=== PATIENT | female | born 1965 | race Hispanic/Latino ===

== ENCOUNTER 2022-07-26 18:00 | Inpatient (IN) | payer BC, SELFPAY ==
[2022-07-26] VITALS (27 sets, daily range): BP systolic 101–157; BP diastolic 52–86; PULSE 86–121; RESP 16–40; TEMP 37.4–38.4; O2SAT 92–100; BMI 34.3
--- NOTE | 2022-07-26 19:09 | ED_ITS ---
HPI - Skin/Abscess/Foreign Bdy <Bryce Conway PA-C - Last Filed: 07/26/22 20:03> General Chief complaint: Skin/Abscess/Foreign Body Stated complaint: Cyst on bottom Time Seen by Provider: 07/26/22 18:40 Source: patient Mode of arrival: Ambulatory Limitations: no limitations History of Present Illness HPI narrative: This is a 57-year-old female presents to the emergency department complaining of a left-sided gluteal skin infection. She is unsure of exactly when it started but states that it began getting worse 3 days ago. She went to her primary care provider 2 days ago and was given oral Bactrim which she has been taking and states that her symptoms have not been improving. She states that she is also been having some chills as well as some nausea. Denies any vomiting. Denies any chest pain, shortness of breath, or any other concerns signs or symptoms. Denies any drainage from the skin infection. States is painful to sit on. No history of MRSA. Patient is type 1 diabetic which she states is well controlled with glipizide and metformin. Also has a history of hypertension. Related Data Allergies Allergy/AdvReac Type Severity Reaction Status Date / Time No Known Drug Allergies Allergy Verified 07/26/22 18:11 <Cata Morgan MD - Last Filed: 07/27/22 02:13> History of Present Illness HPI narrative: This is a 57-year-old female presents to the emergency department complaining of a left-sided gluteal skin infection. She is unsure of exactly when it started but states that it began getting worse 3 days ago. She went to her primary care provider 2 days ago and was given oral Bactrim which she has been taking and states that her symptoms have not been improving. She states that she is also been having some chills as well as some nausea. Denies any vomiting. Denies any chest pain, shortness of breath, or any other concerns signs or symptoms. Denies any drainage from the skin infection. States is painful to sit on. No history of MRSA. Patient is type 2 diabetic which she states is well controlled with glipizide and metformin. Also has a history of hypertension. Review of Systems <Bryce Conway PA-C - Last Filed: 07/26/22 20:03> Review of Systems Narrative: GENERAL: Reports chills,, denies fatigue, malaise, fever, sweats. HEENT: Denies sinus pain, ear pain, sore throat, difficulty swallowing, dizziness. RESPIRATORY: Denies dyspnea, cough, wheezing, hemoptysis, sputum. CARDIOVASCULAR: Denies chest pain, palpitations, orthopnea, edema, GASTROINTESTINAL: Reports nausea, denies vomiting, abdominal pain, diarrhea, constipation, melena. : Denies dysuria, frequency, incontinence, hematuria, urinary retention. MUSCULOSKELETAL: denies weakness, joint pain, or bony pain SKIN: Reports left-sided gluteal skin infection NEUROLOGIC: Denies weakness, headache, numbness, change in speech, confusion, seizures, incoordination. PSYCHIATRIC: No concerning psychosocial issues. 12 point review of systems is negative except for those stated above Patient History <Bryce Conway PA-C - Last Filed: 07/26/22 20:03> Social History Smoking Status: Former smoker Smoking Status: Former smoker alcohol intake frequency: 0-2 drinks per day Substance Use Type: does not use Exam <Bryce Conway PA-C - Last Filed: 07/26/22 20:03> Narrative Exam Narrative: GENERAL: Well-developed patient, in mild distress. HEAD: Atraumatic. Normocephalic. EYES: Pupils equal round and reactive. Extraocular motions intact. No scleral icterus. No injection or drainage. ENT: Nose without bleeding, purulent drainage. Throat without erythema, tonsillar hypertrophy or exudate. Airway patent. NECK: Trachea midline. Non tender CARDIOVASCULAR: Tachycardic with regular rhythm without murmurs, gallops, or rubs. RESPIRATORY: Clear to auscultation. Breath sounds equal bilaterally. No wheezes, rales, or rhonchi. GASTROINTESTINAL: Abdomen soft, non-tender, nondistended. EXTREMITIES: No edema or joint tenderness. BACK: Nontender without deformity or crepitance. No flank tenderness. NEURO: AOx3. SKIN: Approximately 10 cm in diameter area of erythema and induration affecting the left gluteal fold. No purulent discharge or breaks in the skin. No areas of fluctuance. Initial Vital Signs Initial Vital Signs: Vital Signs Temperature 99.3 F 07/26/22 18:05 Pulse Rate 121 H 07/26/22 18:05 Respiratory Rate 20 07/26/22 18:05 Blood Pressure 133/68 07/26/22 18:05 Pulse Oximetry 100 07/26/22 18:05 Oxygen Delivery Method Room Air 07/26/22 18:05 <Cata Morgan MD - Last Filed: 07/27/22 02:13> Initial Vital Signs Initial Vital Signs: Vital Signs Temperature 99.3 F 07/26/22 18:05 Pulse Rate 121 H 07/26/22 18:05 Respiratory Rate 20 07/26/22 18:05 Blood Pressure 133/68 07/26/22 18:05 Pulse Oximetry 100 07/26/22 18:05 Oxygen Delivery Method Room Air 07/26/22 18:05 Course <Bryce Conway PA-C - Last Filed: 07/26/22 20:03> Orders Ordered: ED Orders 07/26/22 18:30 C-Reactive Protein Quant Urgent Magnesium Urgent 07/26/22 18:50 Blood Culture Stat Complete Blood Count AUTO DIFF Stat Comprehensive Metabolic Panel Stat Lactate (Lactic Acid) Stat Procalcitonin Stat 07/26/22 19:04 Urinalysis and Microscopic Stat 07/26/22 19:18 CT pelvis w con Stat 07/26/22 20:40 COVID19 -Nasal RAPID Stat 07/26/22 21:41 Consult to General Surgery Stat 07/26/22 22:33 Consult to Dietitian, Adult Urgent 07/26/22 22:36 Education, smoking cessation ONGOING 07/26/22 22:41 Consult to Physician Routine 07/26/22 23:07 Urine Culture Stat Urine Microscopic Stat 07/27/22 05:00 Complete Blood Count AUTO DIFF DAILY Comprehensive Metabolic Panel DAILY Hemoglobin A1C% w Est Avg Glu Urgent Lactate (Lactic Acid) Routine PTT Partial Thromboplastin El Routine Procalcitonin Routine Prothrombin Time INR Routine 07/28/22 05:00 Complete Blood Count AUTO DIFF DAILY Comprehensive Metabolic Panel DAILY 07/29/22 05:00 Complete Blood Count AUTO DIFF DAILY Comprehensive Metabolic Panel DAILY Acetaminophen (Acetaminophen 325 Mg Tablet) 650 mg PO Q6H PRN PRN Reason: Fever/Mild Pain (1-3) Hydrocodone Bitart/Acetaminophen (Hydrocodone/Acet 5/325 Tablet) 2 tab PO Q4H PRN PRN Reason: Pain, Severe (7-10) Dextrose (Dextrose 50 % In Water 25 Gm/50 Ml Syringe) 25 gm IV PRN PRN PRN Reason: Hypoglycemia Hydromorphone HCl (Hydromorphone 0.5 Mg Inj) 0.5 mg IV Q15MIN PRN PRN Reason: Pain, Last Admin: 07/26/22 22:34 Dose: 0.5 mg Documented By: Admin: 07/26/22 22:06 Dose: 0.5 mg Documented By: RB Hydromorphone HCl (Hydromorphone 0.5 Mg Inj) 0.5 mg IV Q2H PRN PRN Reason: Pain, Severe (7-10) Sodium Chloride (Normal Saline 0.9%) 1,000 mls @ 100 mls/hr IV CONT TIANA Last Infusion: 07/27/22 02:01 Dose: 150 mls/hr Documented By: Admin: 07/26/22 23:00 Dose: 100 mls/hr Documented By: RB Meropenem 500 mg/ Sodium (Chloride) 100 mls @ 200 mls/hr IV Q8H TIANA Last Infusion: 07/27/22 01:30 Dose: 0 mls/hr Documented By: Admin: 07/27/22 00:38 Dose: 200 mls/hr Documented By: RB Vancomycin HCl/Dextrose (Vancomycin) 1,500 mg in 300 mls @ 200 mls/hr IV Q12H TIANA Sodium Chloride (Normal Saline 0.9%) 1,000 mls @ 150 mls/hr IV CONT TIANA Insulin Human Lispro (Insulin Lispro 100 Unit/Ml 3ml Vial) 0 unit SUBCUT ACHS TIANA; Protocol Naloxone HCl (Naloxone 0.4 Mg/Ml Vial) 0.2 mg IV Q2MIN PRN PRN Reason: Opiate Reversal Ondansetron HCl (Ondansetron 4 Mg/2 Ml Inj) 4 mg IV Q4HR PRN PRN Reason: Nausea And Vomiting Discontinued Medications Acetaminophen (Acetaminophen 325 Mg Tablet) 650 mg PO NOW ONE Stop: 07/26/22 21:01 Last Admin: 07/26/22 21:06 Dose: 650 mg Documented By: RB Sodium Chloride (Normal Saline 0.9%) 1,641 mls @ 547 mls/hr 30 ml/kg infuse over 3 hr (1641 ml) IV NOW ONE Stop: 07/26/22 22:03 Last Infusion: 07/26/22 22:35 Dose: 0 mls/hr Documented By: Admin: 07/26/22 19:16 Dose: 547 mls/hr Documented By: RB Vancomycin HCl (Vancomycin) 1,000 mg in 200 mls @ 200 mls/hr IV NOW ONE Stop: 07/26/22 20:14 Last Infusion: 07/26/22 21:31 Dose: 0 mls/hr Documented By: Admin: 07/26/22 20:12 Dose: 200 mls/hr Documented By: RB Ceftriaxone Sodium 2,000 mg/ (Sodium Chloride) 100 mls @ 200 mls/hr IV NOW ONE Stop: 07/26/22 19:16 Last Infusion: 07/26/22 20:08 Dose: 0 mls/hr Documented By: Admin: 07/26/22 19:38 Dose: 200 mls/hr Documented By: DINH Vancomycin HCl (Vancomycin) 1,000 mg in 200 mls @ 200 mls/hr IV NOW ONE Stop: 07/26/22 23:59 Last Infusion: 07/27/22 00:37 Dose: 0 mls/hr Documented By: Admin: 07/26/22 23:29 Dose: 200 mls/hr Documented By: RB Morphine Sulfate (Morphine 4 Mg/Ml Inj) 4 mg IV NOW ONE Stop: 07/26/22 20:05 Last Admin: 07/26/22 20:12 Dose: 4 mg Documented By: RB Ondansetron HCl (Ondansetron 4 Mg/2 Ml Inj) 4 mg IV NOW ONE Stop: 07/26/22 20:05 Last Admin: 07/26/22 20:12 Dose: 4 mg Documented By: ROSALEE Vancomycin HCl (Vancomycin Per Pharmacy) 1 request MISC NOW ONE Stop: 07/26/22 22:44 Last Admin: 07/26/22 23:16 Dose: Not Given Documented By: RB Vital Signs Vital signs: Vital Signs - 8 hr 07/26/22 19:03 07/26/22 19:03 07/26/22 19:15 Temperature Pulse Rate 115 H 111 H Respiratory Rate Blood Pressure 108/57 L Pulse Oximetry 99 100 07/26/22 19:51 07/26/22 19:38 07/26/22 19:45 Temperature 101.2 F H Pulse Rate 114 H 106 H Respiratory Rate 26 H 25 H Blood Pressure Pulse Oximetry 99 99 07/26/22 20:00 07/26/22 20:11 07/26/22 20:12 Temperature Pulse Rate 108 H 110 H Respiratory Rate 27 H 40 H Blood Pressure 134/68 Pulse Oximetry 98 100 07/26/22 20:12 07/26/22 20:15 07/26/22 20:18 Temperature Pulse Rate 107 H 105 H Respiratory Rate Blood Pressure 125/59 L Pulse Oximetry 100 100 07/26/22 20:18 07/26/22 20:30 07/26/22 20:30 Temperature Pulse Rate 106 H 108 H Respiratory Rate 23 29 H Blood Pressure 128/61 Pulse Oximetry 100 99 07/26/22 20:45 07/26/22 20:45 07/26/22 20:58 Temperature 100.4 F H Pulse Rate 111 H Respiratory Rate 27 H Blood Pressure 133/66 Pulse Oximetry 100 07/26/22 21:00 07/26/22 21:00 07/26/22 21:15 Temperature Pulse Rate 109 H Respiratory Rate 28 H Blood Pressure 139/75 129/63 Pulse Oximetry 99 07/26/22 21:15 07/26/22 21:30 07/26/22 21:30 Temperature Pulse Rate 112 H 108 H Respiratory Rate 29 H 21 Blood Pressure 137/77 Pulse Oximetry 99 100 07/26/22 21:45 07/26/22 21:45 07/26/22 22:00 Temperature Pulse Rate 111 H Respiratory Rate 18 Blood Pressure 157/86 H 142/83 H Pulse Oximetry 99 07/26/22 22:00 07/26/22 22:20 07/26/22 22:22 Temperature Pulse Rate 111 H 86 Respiratory Rate 26 H Blood Pressure 129/68 Pulse Oximetry 96 92 07/26/22 22:22 07/26/22 22:27 07/26/22 22:29 Temperature 99.9 F H 99.9 F H Pulse Rate 113 H Respiratory Rate 23 Blood Pressure Pulse Oximetry 95 07/26/22 22:30 07/26/22 22:30 07/26/22 22:45 Temperature Pulse Rate 110 H Respiratory Rate 16 Blood Pressure 141/67 H 101/52 L Pulse Oximetry 95 07/26/22 22:45 07/26/22 23:00 07/26/22 23:00 Temperature Pulse Rate 106 H 111 H Respiratory Rate 18 27 H Blood Pressure 105/58 L Pulse Oximetry 94 07/26/22 23:15 07/26/22 23:15 Temperature Pulse Rate 109 H Respiratory Rate 21 Blood Pressure 101/54 L Pulse Oximetry 94 <Cata Morgan MD - Last Filed: 07/27/22 02:13> Orders Ordered: ED Orders 07/26/22 18:30 C-Reactive Protein Quant Urgent Magnesium Urgent 07/26/22 18:50 Blood Culture Stat Complete Blood Count AUTO DIFF Stat Comprehensive Metabolic Panel Stat Lactate (Lactic Acid) Stat Procalcitonin Stat 07/26/22 19:04 Urinalysis and Microscopic Stat 07/26/22 19:18 CT pelvis w con Stat 07/26/22 20:40 COVID19 -Nasal RAPID Stat 07/26/22 21:41 Consult to General Surgery Stat 07/26/22 22:33 Consult to Dietitian, Adult Urgent 07/26/22 22:36 Education, smoking cessation ONGOING 07/26/22 22:41 Consult to Physician Routine 07/26/22 23:07 Urine Culture Stat Urine Microscopic Stat 07/27/22 05:00 Complete Blood Count AUTO DIFF DAILY Comprehensive Metabolic Panel DAILY Hemoglobin A1C% w Est Avg Glu Urgent Lactate (Lactic Acid) Routine PTT Partial Thromboplastin El Routine Procalcitonin Routine Prothrombin Time INR Routine 07/28/22 05:00 Complete Blood Count AUTO DIFF DAILY Comprehensive Metabolic Panel DAILY 07/29/22 05:00 Complete Blood Count AUTO DIFF DAILY Comprehensive Metabolic Panel DAILY Acetaminophen (Acetaminophen 325 Mg Tablet) 650 mg PO Q6H PRN PRN Reason: Fever/Mild Pain (1-3) Hydrocodone Bitart/Acetaminophen (Hydrocodone/Acet 5/325 Tablet) 2 tab PO Q4H PRN PRN Reason: Pain, Severe (7-10) Dextrose (Dextrose 50 % In Water 25 Gm/50 Ml Syringe) 25 gm IV PRN PRN PRN Reason: Hypoglycemia Hydromorphone HCl (Hydromorphone 0.5 Mg Inj) 0.5 mg IV Q15MIN PRN PRN Reason: Pain, Last Admin: 07/26/22 22:34 Dose: 0.5 mg Documented By: Admin: 07/26/22 22:06 Dose: 0.5 mg Documented By: RB Hydromorphone HCl (Hydromorphone 0.5 Mg Inj) 0.5 mg IV Q2H PRN PRN Reason: Pain, Severe (7-10) Sodium Chloride (Normal Saline 0.9%) 1,000 mls @ 100 mls/hr IV CONT TIANA Last Infusion: 07/27/22 02:01 Dose: 150 mls/hr Documented By: Admin: 07/26/22 23:00 Dose: 100 mls/hr Documented By: RB Meropenem 500 mg/ Sodium (Chloride) 100 mls @ 200 mls/hr IV Q8H TIANA Last Infusion: 07/27/22 01:30 Dose: 0 mls/hr Documented By: Admin: 07/27/22 00:38 Dose: 200 mls/hr Documented By: RB Vancomycin HCl/Dextrose (Vancomycin) 1,500 mg in 300 mls @ 200 mls/hr IV Q12H TIANA Sodium Chloride (Normal Saline 0.9%) 1,000 mls @ 150 mls/hr IV CONT TIANA Insulin Human Lispro (Insulin Lispro 100 Unit/Ml 3ml Vial) 0 unit SUBCUT ACHS TIANA; Protocol Naloxone HCl (Naloxone 0.4 Mg/Ml Vial) 0.2 mg IV Q2MIN PRN PRN Reason: Opiate Reversal Ondansetron HCl (Ondansetron 4 Mg/2 Ml Inj) 4 mg IV Q4HR PRN PRN Reason: Nausea And Vomiting Discontinued Medications Acetaminophen (Acetaminophen 325 Mg Tablet) 650 mg PO NOW ONE Stop: 07/26/22 21:01 Last Admin: 07/26/22 21:06 Dose: 650 mg Documented By: RB Sodium Chloride (Normal Saline 0.9%) 1,641 mls @ 547 mls/hr 30 ml/kg infuse over 3 hr (1641 ml) IV NOW ONE Stop: 07/26/22 22:03 Last Infusion: 07/26/22 22:35 Dose: 0 mls/hr Documented By: Admin: 07/26/22 19:16 Dose: 547 mls/hr Documented By: RB Vancomycin HCl (Vancomycin) 1,000 mg in 200 mls @ 200 mls/hr IV NOW ONE Stop: 07/26/22 20:14 Last Infusion: 07/26/22 21:31 Dose: 0 mls/hr Documented By: Admin: 07/26/22 20:12 Dose: 200 mls/hr Documented By: RB Ceftriaxone Sodium 2,000 mg/ (Sodium Chloride) 100 mls @ 200 mls/hr IV NOW ONE Stop: 07/26/22 19:16 Last Infusion: 07/26/22 20:08 Dose: 0 mls/hr Documented By: Admin: 07/26/22 19:38 Dose: 200 mls/hr Documented By: DINH Vancomycin HCl (Vancomycin) 1,000 mg in 200 mls @ 200 mls/hr IV NOW ONE Stop: 07/26/22 23:59 Last Infusion: 07/27/22 00:37 Dose: 0 mls/hr Documented By: Admin: 07/26/22 23:29 Dose: 200 mls/hr Documented By: ROSALEE Morphine Sulfate (Morphine 4 Mg/Ml Inj) 4 mg IV NOW ONE Stop: 07/26/22 20:05 Last Admin: 07/26/22 20:12 Dose: 4 mg Documented By: ROSALEE Ondansetron HCl (Ondansetron 4 Mg/2 Ml Inj) 4 mg IV NOW ONE Stop: 07/26/22 20:05 Last Admin: 07/26/22 20:12 Dose: 4 mg Documented By: ROSALEE Vancomycin HCl (Vancomycin Per Pharmacy) 1 request MISC NOW ONE Stop: 07/26/22 22:44 Last Admin: 07/26/22 23:16 Dose: Not Given Documented By: ROSALEE Vital Signs Vital signs: Vital Signs - 8 hr 07/26/22 19:03 07/26/22 19:03 07/26/22 19:15 Temperature Pulse Rate 115 H 111 H Respiratory Rate Blood Pressure 108/57 L Pulse Oximetry 99 100 07/26/22 19:51 07/26/22 19:38 07/26/22 19:45 Temperature 101.2 F H Pulse Rate 114 H 106 H Respiratory Rate 26 H 25 H Blood Pressure Pulse Oximetry 99 99 07/26/22 20:00 07/26/22 20:11 07/26/22 20:12 Temperature Pulse Rate 108 H 110 H Respiratory Rate 27 H 40 H Blood Pressure 134/68 Pulse Oximetry 98 100 07/26/22 20:12 07/26/22 20:15 07/26/22 20:18 Temperature Pulse Rate 107 H 105 H Respiratory Rate Blood Pressure 125/59 L Pulse Oximetry 100 100 07/26/22 20:18 07/26/22 20:30 07/26/22 20:30 Temperature Pulse Rate 106 H 108 H Respiratory Rate 23 29 H Blood Pressure 128/61 Pulse Oximetry 100 99 07/26/22 20:45 07/26/22 20:45 07/26/22 20:58 Temperature 100.4 F H Pulse Rate 111 H Respiratory Rate 27 H Blood Pressure 133/66 Pulse Oximetry 100 07/26/22 21:00 07/26/22 21:00 07/26/22 21:15 Temperature Pulse Rate 109 H Respiratory Rate 28 H Blood Pressure 139/75 129/63 Pulse Oximetry 99 07/26/22 21:15 07/26/22 21:30 07/26/22 21:30 Temperature Pulse Rate 112 H 108 H Respiratory Rate 29 H 21 Blood Pressure 137/77 Pulse Oximetry 99 100 07/26/22 21:45 07/26/22 21:45 07/26/22 22:00 Temperature Pulse Rate 111 H Respiratory Rate 18 Blood Pressure 157/86 H 142/83 H Pulse Oximetry 99 07/26/22 22:00 07/26/22 22:20 07/26/22 22:22 Temperature Pulse Rate 111 H 86 Respiratory Rate 26 H Blood Pressure 129/68 Pulse Oximetry 96 92 07/26/22 22:22 07/26/22 22:27 07/26/22 22:29 Temperature 99.9 F H 99.9 F H Pulse Rate 113 H Respiratory Rate 23 Blood Pressure Pulse Oximetry 95 07/26/22 22:30 07/26/22 22:30 07/26/22 22:45 Temperature Pulse Rate 110 H Respiratory Rate 16 Blood Pressure 141/67 H 101/52 L Pulse Oximetry 95 07/26/22 22:45 07/26/22 23:00 07/26/22 23:00 Temperature Pulse Rate 106 H 111 H Respiratory Rate 18 27 H Blood Pressure 105/58 L Pulse Oximetry 94 07/26/22 23:15 07/26/22 23:15 Temperature Pulse Rate 109 H Respiratory Rate 21 Blood Pressure 101/54 L Pulse Oximetry 94 MDM - Skin/Abscess/Foreign Bdy <Bryce Conway PA-C - Last Filed: 07/26/22 20:03> Lab Data 07/26/22 18:50 07/26/22 18:50 Labs: Lab Results 07/26/22 07/26/22 07/26/22 Range/Units 18:30 18:30 18:50 WBC 22.9 H (4.5-11.0) X10^3/uL RBC 4.14 (4.0-5.2) X10^6/uL Hgb 11.9 L (12.0-16.0) g/dL Hct 36.3 (36-46) % MCV 87.7 (80-100) fL MCH 28.7 (26-34) PG MCHC 32.8 (30-36) % RDW 14.4 (11.6-14.8) % Plt Count 376 (150-400) X10^3/uL Neut % (Auto) 87.1 H (50-75) % Lymph % (Auto) 6.8 L (25-40) % [place] % (Auto) 5.7 (3-14) % Eos % (Auto) 0.2 L (2-4) % Baso % (Auto) 0.2 (0-2) % Neut # (Auto) 65921 H (4537-4781) /uL Lymph # (Auto) 1600 (2712-2242) /uL [place] # (Auto) 1300 H (0-900) /uL Eos # (Auto) 0 (0-450) /uL Baso # (Auto) 0 (0-100) /uL Sodium (137-145) mmol/L Potassium (3.4-5.1) mmol/L Chloride (98-107) mmol/L Carbon Dioxide (22-32) mmol/L BUN (7-17) mg/dL Creatinine (0.52-1.04) mg/dL Estimated GFR (>60) mL/min BUN/Creatinine Ratio (6-22) Glucose (70-100) mg/dL Lactate (0.7-2.1) mmol/L Calcium (8.4-10.2) mg/dL Magnesium 1.7 (1.6-2.3) mg/dL Total Bilirubin (0.2-1.3) mg/dL AST (14-36) IU/L ALT (<35) IU/L Alkaline Phosphatase (38-126) U/L C-Reactive Protein 18.9 H (<1.0) mg/dL Total Protein (6.3-8.2) g/dL Albumin (3.5-5.0) g/dL Globulin (1.7-4.1) g/dL Albumin/Globulin Ratio (1.0-2.8) Procalcitonin (<0.5) ng/mL SARS-CoV-2 (PCR) (Negative) 07/26/22 07/26/22 07/26/22 Range/Units 18:50 18:50 20:40 WBC (4.5-11.0) X10^3/uL RBC (4.0-5.2) X10^6/uL Hgb (12.0-16.0) g/dL Hct (36-46) % MCV (80-100) fL MCH (26-34) PG MCHC (30-36) % RDW (11.6-14.8) % Plt Count (150-400) X10^3/uL Neut % (Auto) (50-75) % Lymph % (Auto) (25-40) % [place] % (Auto) (3-14) % Eos % (Auto) (2-4) % Baso % (Auto) (0-2) % Neut # (Auto) (6507-7338) /uL Lymph # (Auto) (6410-3240) /uL [place] # (Auto) (0-900) /uL Eos # (Auto) (0-450) /uL Baso # (Auto) (0-100) /uL Sodium 137 (137-145) mmol/L Potassium 3.9 (3.4-5.1) mmol/L Chloride 101 (98-107) mmol/L Carbon Dioxide 24 (22-32) mmol/L BUN 16 (7-17) mg/dL Creatinine 0.71 (0.52-1.04) mg/dL Estimated GFR > 60 (>60) mL/min BUN/Creatinine Ratio 22.5 H (6-22) Glucose 109 H (70-100) mg/dL Lactate 1.4 (0.7-2.1) mmol/L Calcium 9.5 (8.4-10.2) mg/dL Magnesium (1.6-2.3) mg/dL Total Bilirubin 1.2 (0.2-1.3) mg/dL AST 43 H (14-36) IU/L ALT 48 H (<35) IU/L Alkaline Phosphatase 160 H (38-126) U/L C-Reactive Protein (<1.0) mg/dL Total Protein 8.6 H (6.3-8.2) g/dL Albumin 4.1 (3.5-5.0) g/dL Globulin 4.5 H (1.7-4.1) g/dL Albumin/Globulin Ratio 0.9 L (1.0-2.8) Procalcitonin 0.12 (<0.5) ng/mL SARS-CoV-2 (PCR) Negative (Negative) Point of Care Testing Glucose POC 96 Urine Dip Bedside Urine Glucose Negative Bedside Urine Bilirubin - Negative Bedside Urine Ketone +/- 5 Urine Specific [place] 1.010 Bedside Urine Occult Blood - Negative Bedside Urine pH 6.0 Bedside Urine Protein - Negative Bedside Urine Urobilinogen 2+ 4mg Bedside Urine Nitrite - Negative Bedside Urine Leukocytes - Negative Esterase MDM Narrative Medical decision making narrative: MDM * differential diagnosis includes but not limited to cellulitis, abscess, pilonidal cyst, perirectal abscess * Prior records reviewed: Patient has not been here to this emergency department in the past. No records to review. * My lab interpretation: WBC 22.9, lactate 1.4, remaining labs pending at time of handoff. * My imaging interpretation: Imaging pending at time of handoff * Clinical Decision Rules/Scores evaluated: None * Independent discussions with: None ED Course: This is a 57-year-old female presents to the emergency department due to a worsening left-sided gluteal infection. Patient was noted to be tachycardic with the associated infection. Initial temperature was 99.3?. Sepsis orders initiated. Fluids started as well as patient given IV vancomycin and Rocephin for antibiotic coverage. CT pelvis with contrast was ordered for further examination of the soft tissue infection. Care was handed off to my attending physician, Dr. Morgan at end of shift. 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 she is unsure if it is actually a cancer, hypertension, hyperlipidemia Data collected from: patient, Social determinants of health that may influence the patients condition: her son is currently deployed and he helps with additional medical care and transportation Medical records reviewed: no medical records are available Differential considered: abscess, cellulitis, perirectal abscess, pilonidal cyst Exam documented above, pertinent findings include: significant induration and tenderness in the right buttock without obvious drainage, palpable fluctuance or erythema Lab Test results independently reviewed as above. Pertinent findings: CBC shows significant leukocytosis at 22.9 with significant left shift. No anemia chemistries show no acute renal abnormalities with creatinine 0.7. Slightly elevated AST ALT alk-phos with no prior labs for comparison Imaging studies independently reviewed: CT scan of the pelvis with contrast shows moderate underlying subcutaneous soft tissue inflammation and moderate-sized focus of soft tissue gas along the medial buttock/glutealcleft measuring 5.2 x 5.7 x 5.5 cm.? Extension of soft tissue gas across the midline on the right side, adjacent to the anus.? No organized fluid collection seen. Consultations:930pm Dr. Zapata, general surgery. She will consult evaluate the patient in the morning anticipate surgical I&D tomorrow. 10pm Discussion with hospitalist BELT POLISHERSanna Posada, will be primary admitting service for help with diabetes hypertension hyperlipidemia management Treatments: with suspected infection and tachycardia issues is meeting SIRS criteria. Thirty per kilos fluid bolus was initiated after blood cultures obtained. She was started on ceftriaxone with vancomycin. Parenteral narcotics for use for pain control. She is doing a bit better at this point Discussion: [id number] 2 diabetic with possible pancreatic cancer currently being very conservatively manage with left deep buttock abscess without drainage. She is responding nicely to fluids and parenteral antibiotics. Will be admitted to the medicine service. Surgery is consulted. Patient is aware of all of this was anticipation of surgical intervention for her abscess tomorrow. Questions are answered Lab Data Labs: Lab Results 07/26/22 07/26/22 07/26/22 Range/Units 18:30 18:30 18:50 WBC 22.9 H (4.5-11.0) X10^3/uL RBC 4.14 (4.0-5.2) X10^6/uL Hgb 11.9 L (12.0-16.0) g/dL Hct 36.3 (36-46) % MCV 87.7 (80-100) fL MCH 28.7 (26-34) PG MCHC 32.8 (30-36) % RDW 14.4 (11.6-14.8) % Plt Count 376 (150-400) X10^3/uL Neut % (Auto) 87.1 H (50-75) % Lymph % (Auto) 6.8 L (25-40) % [place] % (Auto) 5.7 (3-14) % Eos % (Auto) 0.2 L (2-4) % Baso % (Auto) 0.2 (0-2) % Neut # (Auto) 65772 H (7953-8268) /uL Lymph # (Auto) 1600 (2768-9796) /uL [place] # (Auto) 1300 H (0-900) /uL Eos # (Auto) 0 (0-450) /uL Baso # (Auto) 0 (0-100) /uL Sodium (137-145) mmol/L Potassium (3.4-5.1) mmol/L Chloride (98-107) mmol/L Carbon Dioxide (22-32) mmol/L BUN (7-17) mg/dL Creatinine (0.52-1.04) mg/dL Estimated GFR (>60) mL/min BUN/Creatinine Ratio (6-22) Glucose (70-100) mg/dL Lactate (0.7-2.1) mmol/L Calcium (8.4-10.2) mg/dL Magnesium 1.7 (1.6-2.3) mg/dL Total Bilirubin (0.2-1.3) mg/dL AST (14-36) IU/L ALT (<35) IU/L Alkaline Phosphatase (38-126) U/L C-Reactive Protein 18.9 H (<1.0) mg/dL Total Protein (6.3-8.2) g/dL Albumin (3.5-5.0) g/dL Globulin (1.7-4.1) g/dL Albumin/Globulin Ratio (1.0-2.8) Procalcitonin (<0.5) ng/mL SARS-CoV-2 (PCR) (Negative) 07/26/22 07/26/22 07/26/22 Range/Units 18:50 18:50 20:40 WBC (4.5-11.0) X10^3/uL RBC (4.0-5.2) X10^6/uL Hgb (12.0-16.0) g/dL Hct (36-46) % MCV (80-100) fL MCH (26-34) PG MCHC (30-36) % RDW (11.6-14.8) % Plt Count (150-400) X10^3/uL Neut % (Auto) (50-75) % Lymph % (Auto) (25-40) % [place] % (Auto) (3-14) % Eos % (Auto) (2-4) % Baso % (Auto) (0-2) % Neut # (Auto) (3439-1784) /uL Lymph # (Auto) (7162-1240) /uL [place] # (Auto) (0-900) /uL Eos # (Auto) (0-450) /uL Baso # (Auto) (0-100) /uL Sodium 137 (137-145) mmol/L Potassium 3.9 (3.4-5.1) mmol/L Chloride 101 (98-107) mmol/L Carbon Dioxide 24 (22-32) mmol/L BUN 16 (7-17) mg/dL Creatinine 0.71 (0.52-1.04) mg/dL Estimated GFR > 60 (>60) mL/min BUN/Creatinine Ratio 22.5 H (6-22) Glucose 109 H (70-100) mg/dL Lactate 1.4 (0.7-2.1) mmol/L Calcium 9.5 (8.4-10.2) mg/dL Magnesium (1.6-2.3) mg/dL Total Bilirubin 1.2 (0.2-1.3) mg/dL AST 43 H (14-36) IU/L ALT 48 H (<35) IU/L Alkaline Phosphatase 160 H (38-126) U/L C-Reactive Protein (<1.0) mg/dL Total Protein 8.6 H (6.3-8.2) g/dL Albumin 4.1 (3.5-5.0) g/dL Globulin 4.5 H (1.7-4.1) g/dL Albumin/Globulin Ratio 0.9 L (1.0-2.8) Procalcitonin 0.12 (<0.5) ng/mL SARS-CoV-2 (PCR) Negative (Negative) Point of Care Testing Glucose POC 96 Urine Dip Bedside Urine Glucose Negative Bedside Urine Bilirubin - Negative Bedside Urine Ketone +/- 5 Urine Specific [place] 1.010 Bedside Urine Occult Blood - Negative Bedside Urine pH 6.0 Bedside Urine Protein - Negative Bedside Urine Urobilinogen 2+ 4mg Bedside Urine Nitrite - Negative Bedside Urine Leukocytes - Negative Esterase MDM Narrative Medical decision making narrative: Severe Sepsis Criteria [ x] bacterial source of infection suspected and documented [ ] 2 SIRS Criteria met [ x ] HR >90 [x ] RR >20 [ ] fever or hypothermia [x ] leukocytosis/leukopenia/bandemia [ ] Evidence of at least 1 organ system dysfunction [ ] Lactate > 2 [ ] BP < 90 or MAP <65, >40mm decrease from normal baseline [ ] Creat > 2.0 [ ] T. Bili > 2.0 [ ] platelet count < 100k [ ] altered mental status [ ] mechanical ventilation [ ] provider documentation of severe sepsis Severe Sepsis Determination. the patient has been screened and [ ] DOES meet criteria for severe sepsis [ x ] DOES NOT meet criteria for severe sepsis Goal directed treatment Within 3 hours [ x] blood cx drawn prior to abx [ x ] broad spectrum abx started [ x ] lactic acid level checked [ ] lactic redrawn within 6 hours if >2.0 Septic Shock Criteria [ ] lactic > 4 at any time [ ] SBP ,90 or MAP , 65 [ ] documentation of septic shock Time Septic Shock diagnosed: [ ] Septic Shock Determination. the patient has been screened and [ ] DOES meet criteria for septic shock [ x] DOES NOT meet criteria for septic shock Discharge Plan Departure Patient Disposition: Admitted As Inpatient Clinical Impression: Abscess, gluteal, left, SIRS (systemic inflammatory response syndrome) Diabetes Qualifiers: Diabetes mellitus type: type 2 Diabetes mellitus long term care pharmacist insulin use: without long term care pharmacist use Admit Date/Time: 07/26/22 23:46 Admit Provider: Faby Posada
[2022-07-26] MEDS: SODIUM CHLORIDE 0.9% 1,641 ML 547 ML IV (19:16)
--- NOTE | 2022-07-26 19:18 | DI.CT.S_ITS ---
PROCEDURE: CT PELVIS W CON INDICATIONS: Evaluate L gluteal soft tissue infection TECHNIQUE: After the administration of intravenous contrast, 5 mm thick sections acquired from the iliac crests to the symphysis. 5 mm coronal and sagittal reformats were acquired. For radiation dose reduction, the following was used: automated exposure control, adjustment of mA and/or kV according to patient size. COMPARISON: None. FINDINGS: Image quality: Excellent. Peritoneum and bowel: Bowel loops demonstrate normal wall thickness and caliber. No free fluid or air. Genitourinary: Bladder wall thickness is normal. Nodes and vessels: No iliac, pelvic, or inguinal adenopathy by size criteria. Iliac vessels demonstrate normal size and enhancement. Bones: No suspicious bony lesions. Miscellaneous: There is moderate skin thickening overlying the left buttocks with significant subcutaneous soft tissue inflammatory changes. Additionally, moderate-size focus of subcutaneous gas measuring approximately 5.2 x 5.7 cm in axial cross-sectional dimension noted medially near the gluteal cleft. This measures approximately 5.5 cm in craniocaudal dimension. Soft tissue gas appears to extend into the medial right buttocks adjacent to the anus. No evidence for organized fluid collection seen. No extension of gas into the peritoneal cavity. IMPRESSION: Skin thickening of the left buttocks with moderate underlying subcutaneous soft tissue inflammation and moderate-sized focus of soft tissue gas along the medial buttock/gluteal cleft measuring 5.2 x 5.7 x 5.5 cm. Extension of soft tissue gas across the midline on the right side, adjacent to the anus. No organized fluid collection seen. Recommend correlation for recent instrumentation/incision and drainage. Otherwise, findings are suspicious for infection with a gas-forming organism and surgical consultation is recommended. No extension of soft tissue gas into the peritoneal cavity. Findings were discussed with Dr. Morgan at 2022 hrs. Dictated by: Ángel Adams M.D. on 07/26/2022 at 20:10 Approved by: Ángel Adams M.D. on 07/26/2022 at 20:25
[2022-07-26 19:38] LABS: Add Manual Diff / Slide Review NO; Basophils Absolute Auto 0 /uL (0-100); Basophils Percent Auto 0.2 % (0-2); Eosinophils Absolute Auto 0 /uL (0-450); Eosinophils Percent Auto 0.2 % (2-4); Hematocrit 36.3 % (36-46); Hemoglobin 11.9 g/dL (12.0-16.0); Lymphocytes Absolute Auto 1600 /uL (1100-4500); Lymphocytes Percent Auto 6.8 % (25-40); Mean Corpuscular HGB Conc 32.8 % (30-36); Mean Corpuscular Hemoglobin 28.7 PG (26-34); Mean Corpuscular Volume 87.7 fL (80-100); Monocytes Absolute Auto 1300 /uL (0-900); Monocytes Percent Auto 5.7 % (3-14); Neutrophils Absolute Auto 20000 /uL (1500-7000); Neutrophils Percent Auto 87.1 % (50-75); Platelet Count 376 X10^3/uL (150-400); Red Blood Cell Count 4.14 X10^6/uL (4.0-5.2); Red Cell Distribution Width 14.4 % (11.6-14.8); White Blood Cell Count 22.9 X10^3/uL (4.5-11.0)
[2022-07-26] MEDS: cefTRIAXone 2,000 MG in SODIUM CHLORIDE 0.9% 100 ML 200 MG IV (19:38)
[2022-07-26 19:45] LABS: Alanine Aminotransferase 48 IU/L (<35); Albumin 4.1 g/dL (3.5-5.0); Albumin Globulin Ratio 0.9 (1.0-2.8); Alkaline Phosphatase 160 U/L (38-126); Aspartate Aminotransferase 43 IU/L (14-36); BUN Creatinine Ratio 22.5 (6-22); Bilirubin Total 1.2 mg/dL (0.2-1.3); Blood Urea Nitrogen 16 mg/dL (7-17); Calcium 9.5 mg/dL (8.4-10.2); Carbon Dioxide 24 mmol/L (22-32); Chloride 101 mmol/L (98-107); Estimated Glomerular Filt Rate > 60 mL/min (>60); Globulin 4.5 g/dL (1.7-4.1); Glucose 109 mg/dL (70-100); HEMOLYSIS < 15 (0-50); Potassium 3.9 mmol/L (3.4-5.1); Sodium 137 mmol/L (137-145); Total Protein 8.6 g/dL (6.3-8.2)
[2022-07-26 19:46] LABS: Lactate (Lactic Acid) 1.4 mmol/L (0.7-2.1)
[2022-07-26 20:02] LABS: Procalcitonin 0.12 ng/mL (<0.5)
[2022-07-26] MEDS: ONDANSETRON 4 MG/2 ML INJ IV (20:12)
[2022-07-26] MEDS: MORPHINE 4 MG/ML INJ IV (20:12)
[2022-07-26] MEDS: VANCOMYCIN 1,000 MG/200 ML PIGGYBACK 200 MG IV ×2 (20:12→23:29)
[2022-07-26 21:01] LABS: COVID19 -Nasal RAPID Negative (Negative)
[2022-07-26] MEDS: ACETAMINOPHEN 325 MG TABLET 650 MG PO (21:06)
[2022-07-26] MEDS: HYDROMORPHONE 0.5 MG INJ IV ×2 (22:06→22:34)
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
[2022-07-26 22:55] LABS: Magnesium 1.7 mg/dL (1.6-2.3)
[2022-07-26] MEDS: SODIUM CHLORIDE 0.9% 1,000 ML 100 ML IV (23:00)
[2022-07-26 23:15] LABS: C-Reactive Protein Quant 18.9 mg/dL (<1.0)
[2022-07-27] VITALS (71 sets, daily range): BP systolic 89–153; BP diastolic 38–106; PULSE 78–114; RESP 12–43; TEMP 36.3–38.1; O2SAT 92–100; BMI 34.3; BMI 34.2
[2022-07-27] MEDS: MEROPENEM 500 MG in SODIUM CHLORIDE 0.9% 100 ML 200 MG IV ×3 (00:38→22:16)
[2022-07-27 01:24] LABS: Bacteria Urine Few (2-10); RBC Urine 1-5/HPF (0-5/HPF); Squamous Epithelial Cell Urine 1-5 /HPF (0-5/HPF); WBC Urine None Seen (0-5/HPF)
[2022-07-27 01:59] LABS: MRSA (Nasal) PCR Not Detected (Not Detect)
--- NOTE | 2022-07-27 02:02 | PC.NURSE ---
Increased patient to 150mls an hour for normal saline per hospitilist verbal order. Placed current bag at 1540ml/hr to complete current bag and placed in verbal order for the next bag at 150ml/hr .
[2022-07-27] MEDS: SODIUM CHLORIDE 0.9% 1,000 ML 150 ML IV ×2 (02:16→09:13)
[2022-07-27] MEDS: HYDROMORPHONE 0.5 MG INJ IV ×3 (02:17→11:27)
[2022-07-27 04:04] LABS: Add Manual Diff / Slide Review NO; Basophils Absolute Auto 100 /uL (0-100); Basophils Percent Auto 0.4 % (0-2); Eosinophils Absolute Auto 0 /uL (0-450); Eosinophils Percent Auto 0.1 % (2-4); Hemoglobin 10.5 g/dL (12.0-16.0); Lymphocytes Absolute Auto 1800 /uL (1100-4500); Mean Corpuscular HGB Conc 32.9 % (30-36); Mean Corpuscular Hemoglobin 28.7 PG (26-34); Mean Corpuscular Volume 87.2 fL (80-100); Monocytes Absolute Auto 1500 /uL (0-900); Monocytes Percent Auto 6.7 % (3-14); Neutrophils Absolute Auto 18600 /uL (1500-7000); Neutrophils Percent Auto 84.8 % (50-75); Platelet Count 346 X10^3/uL (150-400); Red Blood Cell Count 3.67 X10^6/uL (4.0-5.2); Red Cell Distribution Width 14.4 % (11.6-14.8)
[2022-07-27 04:10] LABS: Lactate (Lactic Acid) 0.7 mmol/L (0.7-2.1)
[2022-07-27 04:13] LABS: Alanine Aminotransferase 37 IU/L (<35); Albumin 3.4 g/dL (3.5-5.0); Albumin Globulin Ratio 0.9 (1.0-2.8); Alkaline Phosphatase 124 U/L (38-126); Aspartate Aminotransferase 30 IU/L (14-36); BUN Creatinine Ratio 20.7 (6-22); Bilirubin Total 0.8 mg/dL (0.2-1.3); Blood Urea Nitrogen 12 mg/dL (7-17); Calcium 8.4 mg/dL (8.4-10.2); Carbon Dioxide 19 mmol/L (22-32); Chloride 107 mmol/L (98-107); Estimated Glomerular Filt Rate > 60 mL/min (>60); Globulin 3.6 g/dL (1.7-4.1); Glucose 116 mg/dL (70-100); HEMOLYSIS < 15 (0-50); Sodium 137 mmol/L (137-145)
[2022-07-27 04:28] LABS: Procalcitonin 0.19 ng/mL (<0.5)
[2022-07-27 05:32] LABS: Erythrocyte Sedimentation Rate 79 MM/HR (0-20)
[2022-07-27 06:49] LABS: INR 1.3 (0.9-1.3); Prothrombin Time 15.2 SECONDS (10.1-12.7)
[2022-07-27 06:52] LABS: PTT Partial Thromboplastin Tim 30 SECONDS (26-36)
--- NOTE | 2022-07-27 07:50 | P.CONS_ITS ---
History of Present Illness Consult details Date Patient Seen: 07/27/22 Time Patient Seen: 07:50 Chief complaint: Cyst on bottom Reason for consult: Butt abscess Requesting provider: Cata Morgan Narrative: Right buttock pain and swelling. Hyperglycemia. Pain is sharp and 10/10. +fever, no diarrhea, no cough Meds Home Medications and Allergies Allergies Allergy/AdvReac Type Severity Reaction Status Date / Time No Known Drug Allergies Allergy Verified 07/26/22 18:11 Exam Vital Signs (past 8 hours): - 07/27/22 00:16 07/27/22 01:01 07/27/22 03:36 Temperature 98.1 F Pulse Rate 105 H 97 H 81 Respiratory Rate 22 18 Blood Pressure 105/56 L Blood Pressure [Right Wrist] 119/56 L 98/53 L Pulse Oximetry 96 94 99 Oxygen Delivery Method Room Air Room Air Room Air 07/27/22 00:30 07/27/22 00:45 07/27/22 00:46 Temperature Pulse Rate 106 H 114 H 111 H Respiratory Rate 26 H 25 H 24 Blood Pressure Blood Pressure [Right Wrist] Pulse Oximetry 96 96 93 Oxygen Delivery Method 07/27/22 00:46 07/27/22 00:56 07/27/22 00:56 Temperature Pulse Rate 99 H Respiratory Rate 24 Blood Pressure 148/106 H 106/54 L Blood Pressure [Right Wrist] Pulse Oximetry 92 Oxygen Delivery Method 07/27/22 01:00 07/27/22 01:00 07/27/22 01:15 Temperature Pulse Rate 100 H Respiratory Rate 25 H Blood Pressure 105/56 L 98/55 L Blood Pressure [Right Wrist] Pulse Oximetry 95 Oxygen Delivery Method 07/27/22 01:15 07/27/22 01:30 07/27/22 01:30 Temperature Pulse Rate 94 H 91 H Respiratory Rate 15 17 Blood Pressure 98/54 L Blood Pressure [Right Wrist] Pulse Oximetry 95 95 Oxygen Delivery Method 07/27/22 01:45 07/27/22 01:45 07/27/22 02:00 Temperature Pulse Rate 91 H Respiratory Rate 16 Blood Pressure 102/52 L 99/53 L Blood Pressure [Right Wrist] Pulse Oximetry 95 Oxygen Delivery Method 07/27/22 02:00 07/27/22 02:15 07/27/22 02:15 Temperature Pulse Rate 92 H 90 Respiratory Rate 20 19 Blood Pressure 97/52 L Blood Pressure [Right Wrist] Pulse Oximetry 94 95 Oxygen Delivery Method 07/27/22 02:30 07/27/22 02:30 07/27/22 02:45 Temperature Pulse Rate 82 Respiratory Rate 17 Blood Pressure 99/55 L 94/52 L Blood Pressure [Right Wrist] Pulse Oximetry 94 Oxygen Delivery Method 07/27/22 02:45 07/27/22 03:00 07/27/22 03:00 Temperature Pulse Rate 84 83 Respiratory Rate 19 19 Blood Pressure 96/54 L Blood Pressure [Right Wrist] Pulse Oximetry 94 95 Oxygen Delivery Method 07/27/22 03:15 07/27/22 03:15 07/27/22 03:30 Temperature Pulse Rate 83 Respiratory Rate 19 Blood Pressure 99/50 L 98/53 L Blood Pressure [Right Wrist] Pulse Oximetry 95 Oxygen Delivery Method 07/27/22 03:30 07/27/22 03:45 07/27/22 03:45 Temperature Pulse Rate 83 91 H Respiratory Rate 18 33 H Blood Pressure 102/62 Blood Pressure [Right Wrist] Pulse Oximetry 95 97 Oxygen Delivery Method 07/27/22 04:00 07/27/22 04:00 07/27/22 04:15 Temperature Pulse Rate 89 Respiratory Rate 25 H Blood Pressure 97/55 L 102/59 L Blood Pressure [Right Wrist] Pulse Oximetry 96 Oxygen Delivery Method 07/27/22 04:15 07/27/22 04:30 07/27/22 04:30 Temperature Pulse Rate 91 H 90 Respiratory Rate 24 21 Blood Pressure 109/61 Blood Pressure [Right Wrist] Pulse Oximetry 96 95 Oxygen Delivery Method 07/27/22 04:45 07/27/22 04:45 07/27/22 05:00 Temperature Pulse Rate 91 H Respiratory Rate 26 H Blood Pressure 104/59 L 97/53 L Blood Pressure [Right Wrist] Pulse Oximetry 95 Oxygen Delivery Method 07/27/22 05:00 07/27/22 05:15 07/27/22 05:15 Temperature Pulse Rate 84 82 Respiratory Rate 18 19 Blood Pressure 96/53 L Blood Pressure [Right Wrist] Pulse Oximetry 94 95 Oxygen Delivery Method 07/27/22 05:30 07/27/22 05:30 07/27/22 05:45 Temperature Pulse Rate 91 H Respiratory Rate 27 H Blood Pressure 103/59 L 104/55 L Blood Pressure [Right Wrist] Pulse Oximetry 96 Oxygen Delivery Method 07/27/22 05:45 07/27/22 06:00 07/27/22 06:00 Temperature Pulse Rate 84 96 H Respiratory Rate 18 20 Blood Pressure 119/56 L Blood Pressure [Right Wrist] Pulse Oximetry 96 97 Oxygen Delivery Method 07/27/22 06:15 07/27/22 06:15 Temperature Pulse Rate 88 Respiratory Rate 29 H Blood Pressure 100/55 L Blood Pressure [Right Wrist] Pulse Oximetry 95 Oxygen Delivery Method Oxygen Delivery Method Room Air Const General: cooperative Nutritional Appearance: obese HENMT Ears: hearing grossly normal bilaterally Face and sinus: normal facial exam Eyes Sclera: sclerae normal Neck Neck: trachea midline Resp Effort & Inspection: normal respiratory effort and able to speak in complete sentences Cardio Rate: tachycardic Rhythm: regular rhythm GI Palpation: soft Back/Spine/Pelvis Other: swollen right buttocks no significant skin changes Skin General: turgor normal Neuro General: patient alert, patient awake and patient oriented x3 Psych Mental Status: mental status grossly normal Judgment: judgment good Objective Labs 07/27/22 03:45 07/27/22 03:45 Labs: Laboratory Results - last 24 hr 07/26/22 07/26/22 07/26/22 18:30 18:30 18:50 WBC 22.9 H RBC 4.14 Hgb 11.9 L Hct 36.3 MCV 87.7 MCH 28.7 MCHC 32.8 RDW 14.4 Plt Count 376 Neut % (Auto) 87.1 H Lymph % (Auto) 6.8 L [place] % (Auto) 5.7 Eos % (Auto) 0.2 L Baso % (Auto) 0.2 Neut # (Auto) 11366 H Lymph # (Auto) 1600 [place] # (Auto) 1300 H Eos # (Auto) 0 Baso # (Auto) 0 ESR PT INR APTT Sodium Potassium Chloride Carbon Dioxide BUN Creatinine Estimated GFR BUN/Creatinine Ratio Glucose Hemoglobin A1c Lactate Calcium Magnesium 1.7 Total Bilirubin AST ALT Alkaline Phosphatase C-Reactive Protein 18.9 H Total Protein Albumin Globulin Albumin/Globulin Ratio Procalcitonin Urine RBC Urine WBC Ur Squamous Epith Cells Urine Bacteria Micro UA Comment Nasal Screen MRSA (PCR) SARS-CoV-2 (PCR) 07/26/22 07/26/22 07/26/22 18:50 18:50 20:40 WBC RBC Hgb Hct MCV MCH MCHC RDW Plt Count Neut % (Auto) Lymph % (Auto) [place] % (Auto) Eos % (Auto) Baso % (Auto) Neut # (Auto) Lymph # (Auto) [place] # (Auto) Eos # (Auto) Baso # (Auto) ESR PT INR APTT Sodium 137 Potassium 3.9 Chloride 101 Carbon Dioxide 24 BUN 16 Creatinine 0.71 Estimated GFR > 60 BUN/Creatinine Ratio 22.5 H Glucose 109 H Hemoglobin A1c Lactate 1.4 Calcium 9.5 Magnesium Total Bilirubin 1.2 AST 43 H ALT 48 H Alkaline Phosphatase 160 H C-Reactive Protein Total Protein 8.6 H Albumin 4.1 Globulin 4.5 H Albumin/Globulin Ratio 0.9 L Procalcitonin 0.12 Urine RBC Urine WBC Ur Squamous Epith Cells Urine Bacteria Micro UA Comment Nasal Screen MRSA (PCR) SARS-CoV-2 (PCR) Negative 07/27/22 07/27/22 07/27/22 00:20 00:47 03:45 WBC 22.0 H RBC 3.67 L Hgb 10.5 L Hct 32.0 L MCV 87.2 MCH 28.7 MCHC 32.9 RDW 14.4 Plt Count 346 Neut % (Auto) 84.8 H Lymph % (Auto) 8.0 L [place] % (Auto) 6.7 Eos % (Auto) 0.1 L Baso % (Auto) 0.4 Neut # (Auto) 65101 H Lymph # (Auto) 1800 [place] # (Auto) 1500 H Eos # (Auto) 0 Baso # (Auto) 100 ESR PT INR APTT Sodium Potassium Chloride Carbon Dioxide BUN Creatinine Estimated GFR BUN/Creatinine Ratio Glucose Hemoglobin A1c Lactate Calcium Magnesium Total Bilirubin AST ALT Alkaline Phosphatase C-Reactive Protein Total Protein Albumin Globulin Albumin/Globulin Ratio Procalcitonin Urine RBC 1-5/hpf Urine WBC None seen Ur Squamous Epith Cells 1-5 /hpf Urine Bacteria Few (2-10) H Micro UA Comment * Nasal Screen MRSA (PCR) Not detected SARS-CoV-2 (PCR) 07/27/22 07/27/22 07/27/22 03:45 03:45 03:45 WBC RBC Hgb Hct MCV MCH MCHC RDW Plt Count Neut % (Auto) Lymph % (Auto) [place] % (Auto) Eos % (Auto) Baso % (Auto) Neut # (Auto) Lymph # (Auto) [place] # (Auto) Eos # (Auto) Baso # (Auto) ESR PT 15.2 H INR 1.3 APTT 30 Sodium 137 Potassium 4.0 Chloride 107 Carbon Dioxide 19 L BUN 12 Creatinine 0.58 Estimated GFR > 60 BUN/Creatinine Ratio 20.7 Glucose 116 H Hemoglobin A1c Lactate 0.7 Calcium 8.4 Magnesium Total Bilirubin 0.8 AST 30 ALT 37 H Alkaline Phosphatase 124 C-Reactive Protein Total Protein 7.0 Albumin 3.4 L Globulin 3.6 Albumin/Globulin Ratio 0.9 L Procalcitonin 0.19 Urine RBC Urine WBC Ur Squamous Epith Cells Urine Bacteria Micro UA Comment Nasal Screen MRSA (PCR) SARS-CoV-2 (PCR) 07/27/22 07/27/22 03:45 03:45 WBC RBC Hgb Hct MCV MCH MCHC RDW Plt Count Neut % (Auto) Lymph % (Auto) [place] % (Auto) Eos % (Auto) Baso % (Auto) Neut # (Auto) Lymph # (Auto) [place] # (Auto) Eos # (Auto) Baso # (Auto) ESR 79 H PT INR APTT Sodium Potassium Chloride Carbon Dioxide BUN Creatinine Estimated GFR BUN/Creatinine Ratio Glucose Hemoglobin A1c Cancelled Lactate Calcium Magnesium Total Bilirubin AST ALT Alkaline Phosphatase C-Reactive Protein Total Protein Albumin Globulin Albumin/Globulin Ratio Procalcitonin Urine RBC Urine WBC Ur Squamous Epith Cells Urine Bacteria Micro UA Comment Nasal Screen MRSA (PCR) SARS-CoV-2 (PCR) [facility] Medical History (Updated 07/27/22 @ 05:11 by LYNDSAY Cui) Essential hypertension Hyperlipidemia associated with type 2 diabetes mellitus Surgical History (Updated 07/27/22 @ 05:11 by LYNDSAY Cui) History of appendectomy History of cholecystectomy History of colon resection History of hysterectomy Family History Father Hypertension Diabetes mellitus Mother Hypertension Tobacco & Substance Use Smoking Status: Former smoker Assessment & Plan Assessment & Plan narrative: Right buttock abscess obesity, BMI 34 diabetic COVID-19 COVID-19 status: Negative Time Spent With Patient Time with patient: 30 to 49 minutes with 50% spent counseling/coordinating care
--- NOTE | 2022-07-27 08:15 | PC.NURSE ---
This RNs first interaction with pt. VSS, pressure 106/59. AOx4. Pt is NPO. States surgeon advised her this am that surgery would be between 12-3pm. Pain 7/10 for L-buttock cellulites.
--- NOTE | 2022-07-27 08:24 | PC.NURSE ---
Spoke to pharmacy and lab, Vanc trough 1 not due until tomorrow.
[2022-07-27] MEDS: VANCOMYCIN 1,250 MG/250 ML PIGGYBACK 250 MG IV ×2 (08:30→16:58)
[2022-07-27] MEDS: lisinopriL 10 MG TABLET PO (08:48)
[2022-07-27 12:16] LABS: PTT Partial Thromboplastin Tim 31 SECONDS (26-36)
--- NOTE | 2022-07-27 13:58 | PC.NURSE ---
Report given to Hugo JONES OR
--- NOTE | 2022-07-27 14:06 | CM.IDA ---
Initial DCP Assessment Patient is 57 y/o female who presents to due to concern for skin infection on left buttock. Patient is on there way to surgery with Dr. Zapata now to treat abscess. Patient has hx of Hyperlipidemia, Type 2 diabetes, Hypertension and Pancreatic Mass Patient's PCP is Dorota Oleary PA-C, patient has out of state [employer] insurance. Patient also sees [facility]. CENTRAL OFFICE EQUIPMENT INSTALLER enters room to meet with patient. Present with patient is patient's friend, patient endorses that she lives with son and son's girlfriend in [place]. Patient presents that son is on deployment and returning home tomorrow. Patient presents as A/Ox4, patient endorses she works at [employer], drives and is independent with ADLs. Patient endorses it has been difficult to walk with this abscess but states she believe it will be much better after surgery. Patient denies need for DME or use of DME at home at this time. Patient denies DCP needs. Patient endorses that she has good supports from family and friends. Patient's friend states she will care for patient as long as needed. Patient endorses her son's girlfriend is studying to be a nurse. Plan: Patient to be admitted after surgery, patient may need wound after surgery. Patient denies DCP needs upon d/c at this time, patient has good family and friend supports. DCP to f/u with POC. Patient likely to d/c to home with family upon medical stability. RAMOS Hastings Discharge Planning/Care Management CM Discharge Assessment Start: 07/27/22 14:00 Freq: Status: Active Protocol: Document 07/27/22 14:01 ROSE MARIE (Rec: 07/27/22 14:06 LN [id number]) Discharge Planning Assessment Assigned Business Development Sales Executive RAMOS Yoon DPOA/Assigned Designee Name Son: Sunil Avila Contact Information [phone] Advance Directives? No History Provided By Patient,Friend Has Patient been admitted in last 30 No days? Prior Living Arrangements Apartment/Condo Household Members family,children Type of transporation used prior to Drives own vehicle admit Independent with ADL's Yes Is patient alert and oriented? Yes Please Provide Date Initial DC 07/27/22 Assessment Was Performed
--- NOTE | 2022-07-27 14:35 | SUR.OPER ---
Lateral on a licea bag, head on pillow, gel axillary roll in place, bottom leg bent with gel pad under knee to foot, upper leg straight and supported with pillows. Upper arm supported by pillows and secured over bottom arm to padded arm board. Safety belt at hip, tape over blanket lower legs.
--- NOTE | 2022-07-27 15:01 | PM.OP.1 ---
Operative Date/Time/Diagnoses Date of procedure: 07/27/22 Time of procedure: 15:02 Pre-op diagnosis: Left buttock abscess Post-op diagnosis: same Procedure & Clinicians Procedure: Incision and drainage of left buttock abscess Same procedure as scheduled: Yes Indications: Left buttock abscess Surgeon: Alisha Zapata Click Yes if Unassisted: Yes Anesthesia Type: General Operative Notes Findings: Left buttock abscess with gas producing organism. Abscess cavity proximally the size of a orange. Closure Type: not applicable Specimen(s): other (Left buttock abscess culture) Applied: drain(s) (A 10. Danny drain) Estimated Blood Loss (mL): 5 Blood products transfused: none Procedure in detail: Preop diagnosis: Left buttock abscess Postop diagnosis: Same Operative procedure: I and D of left buttock abscess Anesthetic: General with ET tube intubation Surgeon: Gabi Zapata MD Findings: Gas-forming organism in a left buttock abscess. Abscess cavity approximately size of a orange. No clinical evidence of neck fascia Procedure: Patient placed in a lateral position. Ten blade was used to incise left buttock and drain proximally 80 cc of pus. I then placed a 10. Danny drain into the abscess cavity bringing out lateral to the abscess itself. Incision that was created over the 1st portion of the buttocks was closed with a U-stitch using 3-0 nylon. Drain was sutured to the skin for security with a 2-0 nylon. Sterile dressings were placed. Patient was awakened, extubated, taken to recovery room in stable condition. Needle, instrument, sponge counts were correct. Blood loss 5 mL Specimen: Left buttock abscess culture Complications: none Post-operative Condition: stable Disposition: PACU
[2022-07-27] MEDS: HYDROCODONE/ACET 5/325 TABLET 2 TAB PO ×3 (15:33→22:26)
--- NOTE | 2022-07-27 18:44 | P.PN_ITS ---
Subjective Subjective Interval history: 57-year-old female with hypertension, hyperlipidemia, type 2 diabetes on oral medications, pancreatic head mass was admitted last night with a left-sided gluteal abscess/cellulitis. She is now postoperative day 0 from I and D with drain placement. She states she is feeling significantly improved from a standpoint of pain. She was not able to lay on her side prior to her incision and drainage. She is now able to lay comfortably. She states she has not had much sleep in the past several days related to the pain. She now feels she will be able to catch up on some rest. Exam Vital Signs (past 8 hours): - 07/27/22 12:00 07/27/22 10:45 07/27/22 11:00 Temperature Pulse Rate 95 H 80 Respiratory Rate 20 Blood Pressure 114/58 L Blood Pressure [Right Wrist] 116/61 Pulse Oximetry 97 93 Oxygen Delivery Method Room Air Oxygen Flow Rate 07/27/22 11:00 07/27/22 11:15 07/27/22 11:30 Temperature Pulse Rate 84 80 Respiratory Rate 21 21 Blood Pressure 153/70 H Blood Pressure [Right Wrist] Pulse Oximetry 94 94 Oxygen Delivery Method Oxygen Flow Rate 07/27/22 11:30 07/27/22 11:45 07/27/22 12:00 Temperature Pulse Rate 97 H 80 Respiratory Rate 19 20 Blood Pressure 116/61 Blood Pressure [Right Wrist] Pulse Oximetry 98 93 Oxygen Delivery Method Oxygen Flow Rate 07/27/22 12:00 07/27/22 12:15 07/27/22 12:30 Temperature Pulse Rate 94 H 95 H Respiratory Rate 21 24 Blood Pressure 105/58 L Blood Pressure [Right Wrist] Pulse Oximetry 98 97 Oxygen Delivery Method Oxygen Flow Rate 07/27/22 12:30 07/27/22 12:45 07/27/22 13:00 Temperature Pulse Rate 93 H 94 H Respiratory Rate 22 21 Blood Pressure 99/56 L Blood Pressure [Right Wrist] Pulse Oximetry 96 96 Oxygen Delivery Method Room Air Oxygen Flow Rate 07/27/22 13:00 07/27/22 14:11 07/27/22 15:08 Temperature 100.6 F H 98.7 F Pulse Rate 91 H 100 H 100 H Respiratory Rate 20 19 18 Blood Pressure 128/72 119/69 Blood Pressure [Right Wrist] Pulse Oximetry 98 98 96 Oxygen Delivery Method Room Air Nasal Cannula Oxygen Flow Rate 07/27/22 15:12 07/27/22 15:35 07/27/22 15:17 Temperature 99.8 F H Pulse Rate 108 H 97 H 101 H Respiratory Rate 18 16 12 Blood Pressure 138/68 129/72 129/79 Blood Pressure [Right Wrist] Pulse Oximetry 97 93 96 Oxygen Delivery Method Room Air Room Air Room Air Oxygen Flow Rate 07/27/22 15:29 07/27/22 15:59 07/27/22 16:38 Temperature 98.3 F Pulse Rate 94 H 94 H 92 H Respiratory Rate 14 14 18 Blood Pressure 136/68 117/69 115/58 L Blood Pressure [Right Wrist] Pulse Oximetry 96 99 99 Oxygen Delivery Method Room Air Room Air Oxygen Flow Rate 0 07/27/22 16:45 07/27/22 17:15 07/27/22 18:15 Temperature 98.0 F 97.4 F L Pulse Rate 93 H 89 89 Respiratory Rate 16 16 16 Blood Pressure 111/53 L 113/59 L 103/38 L Blood Pressure [Right Wrist] Pulse Oximetry 100 99 100 Oxygen Delivery Method Oxygen Flow Rate 0 0 0 Oxygen Delivery Method Room Air Oxygen Flow Rate 0 Narrative Exam Narrative: GEN: Alert and oriented x 3, NAD HEENT:NC, Face symmetric CHEST: Respiratory excursions symmetric, CTAB CV: RRR, no M/R/G ABD: Soft, NT/ND, BT present in all 4 quadrants, no organomegaly or masses EXTR: warm, well perfused, no C/C/E SKIN: warm and dry, no rash, examination of the buttock was deferred as she is just back from the operating room NEURO: Alert and oriented x 3, nonfocal Objective Labs 07/27/22 03:45 07/27/22 03:45 Labs: Laboratory Results - last 24 hr 07/26/22 07/26/22 07/26/22 18:30 18:30 18:50 WBC 22.9 H RBC 4.14 Hgb 11.9 L Hct 36.3 MCV 87.7 MCH 28.7 MCHC 32.8 RDW 14.4 Plt Count 376 Neut % (Auto) 87.1 H Lymph % (Auto) 6.8 L [place] % (Auto) 5.7 Eos % (Auto) 0.2 L Baso % (Auto) 0.2 Neut # (Auto) 62466 H Lymph # (Auto) 1600 [place] # (Auto) 1300 H Eos # (Auto) 0 Baso # (Auto) 0 ESR PT INR APTT Sodium Potassium Chloride Carbon Dioxide BUN Creatinine Estimated GFR BUN/Creatinine Ratio Glucose Hemoglobin A1c Lactate Calcium Magnesium 1.7 Total Bilirubin AST ALT Alkaline Phosphatase C-Reactive Protein 18.9 H Total Protein Albumin Globulin Albumin/Globulin Ratio Procalcitonin Urine RBC Urine WBC Ur Squamous Epith Cells Urine Bacteria Micro UA Comment Nasal Screen MRSA (PCR) SARS-CoV-2 (PCR) 07/26/22 07/26/22 07/26/22 18:50 18:50 20:40 WBC RBC Hgb Hct MCV MCH MCHC RDW Plt Count Neut % (Auto) Lymph % (Auto) [place] % (Auto) Eos % (Auto) Baso % (Auto) Neut # (Auto) Lymph # (Auto) [place] # (Auto) Eos # (Auto) Baso # (Auto) ESR PT INR APTT Sodium 137 Potassium 3.9 Chloride 101 Carbon Dioxide 24 BUN 16 Creatinine 0.71 Estimated GFR > 60 BUN/Creatinine Ratio 22.5 H Glucose 109 H Hemoglobin A1c Lactate 1.4 Calcium 9.5 Magnesium Total Bilirubin 1.2 AST 43 H ALT 48 H Alkaline Phosphatase 160 H C-Reactive Protein Total Protein 8.6 H Albumin 4.1 Globulin 4.5 H Albumin/Globulin Ratio 0.9 L Procalcitonin 0.12 Urine RBC Urine WBC Ur Squamous Epith Cells Urine Bacteria Micro UA Comment Nasal Screen MRSA (PCR) SARS-CoV-2 (PCR) Negative 07/27/22 07/27/22 07/27/22 00:20 00:47 03:45 WBC 22.0 H RBC 3.67 L Hgb 10.5 L Hct 32.0 L MCV 87.2 MCH 28.7 MCHC 32.9 RDW 14.4 Plt Count 346 Neut % (Auto) 84.8 H Lymph % (Auto) 8.0 L [place] % (Auto) 6.7 Eos % (Auto) 0.1 L Baso % (Auto) 0.4 Neut # (Auto) 18693 H Lymph # (Auto) 1800 [place] # (Auto) 1500 H Eos # (Auto) 0 Baso # (Auto) 100 ESR PT INR APTT Sodium Potassium Chloride Carbon Dioxide BUN Creatinine Estimated GFR BUN/Creatinine Ratio Glucose Hemoglobin A1c Lactate Calcium Magnesium Total Bilirubin AST ALT Alkaline Phosphatase C-Reactive Protein Total Protein Albumin Globulin Albumin/Globulin Ratio Procalcitonin Urine RBC 1-5/hpf Urine WBC None seen Ur Squamous Epith Cells 1-5 /hpf Urine Bacteria Few (2-10) H Micro UA Comment * Nasal Screen MRSA (PCR) Not detected SARS-CoV-2 (PCR) 07/27/22 07/27/22 07/27/22 03:45 03:45 03:45 WBC RBC Hgb Hct MCV MCH MCHC RDW Plt Count Neut % (Auto) Lymph % (Auto) [place] % (Auto) Eos % (Auto) Baso % (Auto) Neut # (Auto) Lymph # (Auto) [place] # (Auto) Eos # (Auto) Baso # (Auto) ESR PT 15.2 H INR 1.3 APTT 30 Sodium 137 Potassium 4.0 Chloride 107 Carbon Dioxide 19 L BUN 12 Creatinine 0.58 Estimated GFR > 60 BUN/Creatinine Ratio 20.7 Glucose 116 H Hemoglobin A1c Lactate 0.7 Calcium 8.4 Magnesium Total Bilirubin 0.8 AST 30 ALT 37 H Alkaline Phosphatase 124 C-Reactive Protein Total Protein 7.0 Albumin 3.4 L Globulin 3.6 Albumin/Globulin Ratio 0.9 L Procalcitonin 0.19 Urine RBC Urine WBC Ur Squamous Epith Cells Urine Bacteria Micro UA Comment Nasal Screen MRSA (PCR) SARS-CoV-2 (PCR) 07/27/22 07/27/22 07/27/22 03:45 03:45 12:00 WBC RBC Hgb Hct MCV MCH MCHC RDW Plt Count Neut % (Auto) Lymph % (Auto) [place] % (Auto) Eos % (Auto) Baso % (Auto) Neut # (Auto) Lymph # (Auto) [place] # (Auto) Eos # (Auto) Baso # (Auto) ESR 79 H PT INR APTT 31 Sodium Potassium Chloride Carbon Dioxide BUN Creatinine Estimated GFR BUN/Creatinine Ratio Glucose Hemoglobin A1c Cancelled Lactate Calcium Magnesium Total Bilirubin AST ALT Alkaline Phosphatase C-Reactive Protein Total Protein Albumin Globulin Albumin/Globulin Ratio Procalcitonin Urine RBC Urine WBC Ur Squamous Epith Cells Urine Bacteria Micro UA Comment Nasal Screen MRSA (PCR) SARS-CoV-2 (PCR) [facility] Medical History (Updated 07/27/22 @ 05:11 by LYNDSAY Cui) Essential hypertension Hyperlipidemia associated with type 2 diabetes mellitus Surgical History (Updated 07/27/22 @ 05:11 by LYNDSAY Cui) History of appendectomy History of cholecystectomy History of colon resection History of hysterectomy Family History Father Hypertension Diabetes mellitus Mother Hypertension Social History household members: family and children Smoking Status: Former smoker Assessment & Plan Assessment & Plan narrative: 1. Abscess/cellulitis of the left gluteal fold Patient underwent incision and drainage today. Dr. Zapata describes it as an abscess cavity the size of an orange. Drain was left in place. Plan to continue meropenem for now. Vancomycin will be discontinued as the MRSA swab was negative. Continue pain medications as needed. 2. Type 2 diabetes Visit metformin have been held. Patient has been placed on fingersticks and sliding scale. Hemoglobin A1c is pending. Blood sugars have been well controlled since admission. 3. Hypertension She is mildly hypotensive presently, likely as a combination of anesthesia and pain medication. She is on benazepril and an outpatient basis. Lisinopril has been ordered here. 4. Pancreatic head mass This is being managed by [facility] 5. Class 2 obesity BMI is 34.3. Would benefit from weight reduction Code status Full Prophylaxis Will start Lovenox Disposition Pending
[2022-07-27] MEDS: ATORVASTATIN 20 MG TABLET PO (21:05)
[2022-07-27] MEDS: SODIUM CHLORIDE 0.9% FLUSH 10 ML IV ×2 (22:16)
[2022-07-28] VITALS (11 sets, daily range): BP systolic 87–130; BP diastolic 44–62; PULSE 65–88; RESP 17–22; TEMP 35.7–36.7; O2SAT 93–99
[2022-07-28] MEDS: diphenhydrAMINE 25 MG TABLET PO (02:07)
[2022-07-28] MEDS: SODIUM CHLORIDE 0.9% FLUSH 10 ML IV ×4 (05:15→19:51)
[2022-07-28] MEDS: MEROPENEM 500 MG in SODIUM CHLORIDE 0.9% 100 ML 200 MG IV ×3 (05:18→23:28)
[2022-07-28] MEDS: HYDROMORPHONE 0.5 MG INJ IV ×4 (06:24→19:51)
[2022-07-28 07:03] LABS: Add Manual Diff / Slide Review NO; Basophils Absolute Auto 100 /uL (0-100); Basophils Percent Auto 0.2 % (0-2); Eosinophils Absolute Auto 0 /uL (0-450); Eosinophils Percent Auto 0.1 % (2-4); Hematocrit 29.4 % (36-46); Hemoglobin 9.6 g/dL (12.0-16.0); Lymphocytes Absolute Auto 1900 /uL (1100-4500); Lymphocytes Percent Auto 9.2 % (25-40); Mean Corpuscular HGB Conc 32.6 % (30-36); Mean Corpuscular Hemoglobin 28.6 PG (26-34); Mean Corpuscular Volume 87.6 fL (80-100); Monocytes Absolute Auto 1100 /uL (0-900); Monocytes Percent Auto 5.1 % (3-14); Neutrophils Absolute Auto 17900 /uL (1500-7000); Neutrophils Percent Auto 85.4 % (50-75); Platelet Count 344 X10^3/uL (150-400); Red Blood Cell Count 3.35 X10^6/uL (4.0-5.2); Red Cell Distribution Width 14.3 % (11.6-14.8); White Blood Cell Count 20.9 X10^3/uL (4.5-11.0)
[2022-07-28 07:09] LABS: Labcorp Hemoglobin (Hb) A1c 6.5 % (4.8-5.6)
[2022-07-28 07:18] LABS: Alanine Aminotransferase 37 IU/L (<35); Albumin 3.2 g/dL (3.5-5.0); Albumin Globulin Ratio 0.9 (1.0-2.8); Alkaline Phosphatase 154 U/L (38-126); Aspartate Aminotransferase 40 IU/L (14-36); BUN Creatinine Ratio 21.4 (6-22); Bilirubin Total 0.6 mg/dL (0.2-1.3); Blood Urea Nitrogen 12 mg/dL (7-17); Calcium 8.7 mg/dL (8.4-10.2); Carbon Dioxide 23 mmol/L (22-32); Chloride 103 mmol/L (98-107); Estimated Glomerular Filt Rate > 60 mL/min (>60); Globulin 3.5 g/dL (1.7-4.1); Glucose 122 mg/dL (70-100); HEMOLYSIS < 15 (0-50); Potassium 3.9 mmol/L (3.4-5.1); Sodium 136 mmol/L (137-145); Total Protein 6.7 g/dL (6.3-8.2)
[2022-07-28] MEDS: ENOXAPARIN 40 MG/0.4 ML SYRINGE SUBCUT (08:42)
--- NOTE | 2022-07-28 09:10 | DIET.CONS ---
Dietary Consultation Note Admission Date: 07/26/2022 23:46 Assessment: 57 y/o F admitted with gluteal abscess, PMH of T2DM. Started going to the gym and changing diet. HgA1c previously was 7.8 last year, this year in Apr/May was 7.1. FH of DM with father. Most recent HgA1c while admitted 6.5%. States she has really been working on lifestyle change which has been a challenge at times. Checks BG q day. Usually checks FBG, 89-95 up to 149mg/dl. May have cravings at night and notices higher readings in the morning when having cravings. States protein is sometimes difficult to eat, but per diet recall seems to do well with protein. Diet Recall: Sn: Protein shake B: overnight oats with st helenian yogurt, almond milk, honey, fruit, walnuts L: salad with chicken or cottage cheese D: tacos with corn tortillas x 3, meat, vegetables Sn: nothing or low sugar candy Beverages: Water, sf energy drink, occasionally diet soda Ht: 162.56 cm Wt: 90.6 kg BMI: 34.2 Last BM: 07/25/22 (07/27/22 16:44) MNA: 14 Brenden Score: 22 Diet: 07/27/22 Breakfast Carbohydrate Consistent Diet Diet Modifications: Carbohydrate level: Medium (3 CHO) Bedtime snack: Yes Reflex DM orders: No Nutrition Percent Meal Consumed 100% 07/27/22 18:00 Labs: RBC 3.35 X10^6/uL (4.0-5.2) L 07/28/22 05:50 Hgb 9.6 g/dL (12.0-16.0) L 07/28/22 05:50 Hct 29.4 % (36-46) L 07/28/22 05:50 Creatinine 0.56 mg/dL (0.52-1.04) 07/28/22 05:50 Hemoglobin A1c Cancelled 07/27/22 03:45 Lactate 0.7 mmol/L (0.7-2.1) 07/27/22 03:45 Nutrition Diagnosis: Food and nutrition related knowledge deficit r/t needing nutrition therapy for T2Dm and healing aeb consult and pt report Interventions: Reviewed nutrition therapy for healing and DM management. Reviewed importance of vit c, hydration, protein, and glucose management for healing. Reviewed SMBG goals for FBG and 1-2 hr pc Discussed HgA1c targets and her progress Encouraged OP DM ed prn Monitoring/Evaluations: Rec OP DM ed prn. Electronically Signed by: Sarah Cho 07/28/22 09:10 Clinical Dietitian [address] [id number]
[2022-07-28] MEDS: VANCOMYCIN 1,500 MG/300 ML PIGGYBACK 200 MG IV ×2 (13:16→23:28)
--- NOTE | 2022-07-28 14:18 | CM.DPNOTE ---
Discharge Planning Note: Patient underwent I&D for L buttock abscess yesterday, 07/27/22, drain in place. Final cx pending. 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 Patient generally is independent, drives and works. Plan: Discharge when medically/surgically cleared. Family to transport and can provide care on dc. Janette Pond RN/DCP
--- NOTE | 2022-07-28 14:35 | PC.NURSE ---
Pt A/O , Med at 1315 w/ Dilaudid 0.5 IVP for discomfort; with good relief. HL LAC & RAC intact. Dsg to right glut CDI, DANITZA drain patent. Call light w/in reach, pt calls appropriately for needs.
--- NOTE | 2022-07-28 18:12 | P.PN_ITS ---
Subjective Subjective Interval history: 57-year-old female with hypertension, hyperlipidemia, type 2 diabetes on oral medications, pancreatic head mass was admitted on the evening of 07/26/2022 with a left-sided gluteal abscess/cellulitis.? She is now postoperative day 1 from I and D with DANITZA drain placement.? She reports she was able to get up and sit in the chair today. She is been walking around a bit. However, she feels she may have overdone it a bit she is more painful this afternoon. Overall, she reports significant improvement. Exam Vital Signs (past 8 hours): - 07/28/22 13:52 07/28/22 17:14 Temperature 96.3 F L 97.2 F L Pulse Rate 81 80 Respiratory Rate 18 17 Blood Pressure 114/60 105/60 Pulse Oximetry 99 96 Oxygen Flow Rate 0 0 Oxygen Delivery Method Room Air Oxygen Flow Rate 0 Narrative Exam Narrative: GEN: Alert and oriented x 3, NAD HEENT:NC, Face symmetric CHEST: Respiratory excursions symmetric, CTAB CV: RRR, no M/R/G ABD: Soft, NT/ND, BT present in all 4 quadrants, no organomegaly or masses EXTR: warm, well perfused, no C/C/E SKIN: warm and dry, no rash, DANITZA drain reveals a small amount of serosanguineous drainage, left buttock reveals some induration, erythema, tenderness to the general region around the I&D and DANIZTA drain NEURO: Alert and oriented x 3, nonfocal Objective Labs 07/28/22 05:50 07/28/22 05:50 Labs: Laboratory Results - last 24 hr 07/27/22 07/28/22 07/28/22 03:45 05:50 05:50 WBC 20.9 H RBC 3.35 L Hgb 9.6 L Hct 29.4 L MCV 87.6 MCH 28.6 MCHC 32.6 RDW 14.3 Plt Count 344 Neut % (Auto) 85.4 H Lymph % (Auto) 9.2 L [place] % (Auto) 5.1 Eos % (Auto) 0.1 L Baso % (Auto) 0.2 Neut # (Auto) 66964 H Lymph # (Auto) 1900 [place] # (Auto) 1100 H Eos # (Auto) 0 Baso # (Auto) 100 Sodium 136 L Potassium 3.9 Chloride 103 Carbon Dioxide 23 BUN 12 Creatinine 0.56 Estimated GFR > 60 BUN/Creatinine Ratio 21.4 Glucose 122 H Hgb A1c (Ref Lab) 6.5 H Calcium 8.7 Total Bilirubin 0.6 AST 40 H ALT 37 H Alkaline Phosphatase 154 H Total Protein 6.7 Albumin 3.2 L Globulin 3.5 Albumin/Globulin Ratio 0.9 L [facility] Medical History (Updated 07/27/22 @ 05:11 by HIREN Cui-REBECA) Essential hypertension Hyperlipidemia associated with type 2 diabetes mellitus Surgical History (Updated 07/27/22 @ 05:11 by HIREN Cui-REBECA) History of appendectomy History of cholecystectomy History of colon resection History of hysterectomy Family History Father Hypertension Diabetes mellitus Mother Hypertension Social History household members: family and children Smoking Status: Former smoker Assessment & Plan Assessment & Plan narrative: 1. Abscess/cellulitis of the left buttock Patient underwent incision and drainage yesterday and was found to have an abscess cavity the size of an orange. DANITZA drain in place. Patient remains on meropenem. Vancomycin was discontinued yesterday as her MRSA screen was negative. However, today cultures from the wound revealed 4+ Gram-positive cocci. Therefore vancomycin will be added back until culture and sensitivities are finalized.? She is receiving IV hydromorphone as needed. Will add oral oxycodone as well.. 2. Type 2 diabetes Glipizide and metformin have been held.? Patient has been placed on fingersticks and sliding scale.? Hemoglobin A1c is 6.5% consistent with reasonably good blood glucose control.? Blood sugars have been well controlled since admission. 3. Hypertension Blood pressures are normotensive today. She is on benazepril and an outpatient basis.? Formulary substitution with lisinopril is being given here. 4. Pancreatic head mass This is being managed by [facility] 5. Class 2 obesity BMI is 34.3.? Would benefit from weight reduction Code status Full Prophylaxis Continue Lovenox Disposition Possible discharge in the next 24-48 hours
[2022-07-28] MEDS: ACETAMINOPHEN 325 MG TABLET 650 MG PO (19:50)
[2022-07-28] MEDS: ATORVASTATIN 20 MG TABLET PO (20:04)
[2022-07-29] VITALS: BP 106/63; PULSE 79; RESP 19; TEMP 36.4; O2SAT 96
[2022-07-29] MEDS: OXYCODONE IR 5 MG TABLET PO ×3 (00:22→12:39)
[2022-07-29 04:00] VITALS: BP 112/55; PULSE 78; RESP 18; TEMP 36.1; O2SAT 100
[2022-07-29] MEDS: MEROPENEM 500 MG in SODIUM CHLORIDE 0.9% 100 ML 200 MG IV (06:36)
[2022-07-29 06:56] LABS: Hematocrit 33.9 % (36-46); Hemoglobin 11.3 g/dL (12.0-16.0); Mean Corpuscular HGB Conc 33.2 % (30-36); Mean Corpuscular Hemoglobin 28.7 PG (26-34); Mean Corpuscular Volume 86.5 fL (80-100); Platelet Count 446 X10^3/uL (150-400); Red Blood Cell Count 3.92 X10^6/uL (4.0-5.2); Red Cell Distribution Width 14.6 % (11.6-14.8); White Blood Cell Count 16.7 X10^3/uL (4.5-11.0)
[2022-07-29 07:02] LABS: Add Manual Diff / Slide Review YES
[2022-07-29 07:06] LABS: Alanine Aminotransferase 40 IU/L (<35); Albumin 3.5 g/dL (3.5-5.0); Albumin Globulin Ratio 0.9 (1.0-2.8); Alkaline Phosphatase 156 U/L (38-126); Aspartate Aminotransferase 36 IU/L (14-36); BUN Creatinine Ratio 23.6 (6-22); Bilirubin Total 0.4 mg/dL (0.2-1.3); Blood Urea Nitrogen 13 mg/dL (7-17); Calcium 9.1 mg/dL (8.4-10.2); Carbon Dioxide 25 mmol/L (22-32); Chloride 103 mmol/L (98-107); Estimated Glomerular Filt Rate > 60 mL/min (>60); Globulin 4.1 g/dL (1.7-4.1); Glucose 126 mg/dL (70-100); HEMOLYSIS < 15 (0-50); Potassium 3.8 mmol/L (3.4-5.1); Sodium 137 mmol/L (137-145); Total Protein 7.6 g/dL (6.3-8.2)
--- NOTE | 2022-07-29 07:08 | P.PN_ITS ---
Subjective Subjective Interval history: 57-year-old female with hypertension, hyperlipidemia, type 2 diabetes on oral medications, pancreatic head mass was admitted on the evening of 07/26/2022 with a left-sided gluteal abscess/cellulitis.? She is now postoperative day 1 from I and D with DANITZA drain placement.? She reports she was able to get up and sit in the chair today.? She is been walking around a bit.? However, she feels she may have overdone it a bit she is more painful this afternoon.? Overall, she reports significant improvement. Exam Vital Signs (past 8 hours): - 07/29/22 00:00 07/29/22 04:00 Temperature 97.5 F L 97.0 F L Pulse Rate 79 78 Respiratory Rate 19 18 Blood Pressure 106/63 112/55 L Pulse Oximetry 96 100 Oxygen Delivery Method Room Air Oxygen Flow Rate 0 Narrative Exam Narrative: GEN: Alert and oriented x 3, NAD HEENT:NC, Face symmetric CHEST: Respiratory excursions symmetric, CTAB CV: RRR, no M/R/G ABD: Soft, NT/ND, BT present in all 4 quadrants, no organomegaly or masses EXTR: warm, well perfused, no C/C/E SKIN: warm and dry, no rash, DANITZA drain reveals a small amount of serosanguineous drainage, left buttock reveals some induration, erythema, tenderness to the general region around the I&D and DANITZA drain NEURO: Alert and oriented x 3, nonfocal Objective Labs 07/29/22 06:37 07/28/22 05:50 Labs: Laboratory Results - last 24 hr 07/27/22 07/28/22 07/29/22 03:45 05:50 06:37 WBC 16.7 H RBC 3.92 L Hgb 11.3 L Hct 33.9 L MCV 86.5 MCH 28.7 MCHC 33.2 RDW 14.6 Plt Count 446 H Neut % (Auto) Not Reportable Lymph % (Auto) Not Reportable [place] % (Auto) Not Reportable Eos % (Auto) Not Reportable Baso % (Auto) Not Reportable Lymph # (Auto) Not Reportable [place] # (Auto) Not Reportable Baso # (Auto) Not Reportable Sodium 136 L Potassium 3.9 Chloride 103 Carbon Dioxide 23 BUN 12 Creatinine 0.56 Estimated GFR > 60 BUN/Creatinine Ratio 21.4 Glucose 122 H Hgb A1c (Ref Lab) 6.5 H Calcium 8.7 Total Bilirubin 0.6 AST 40 H ALT 37 H Alkaline Phosphatase 154 H Total Protein 6.7 Albumin 3.2 L Globulin 3.5 Albumin/Globulin Ratio 0.9 L PFSH Medical History (Updated 07/27/22 @ 05:11 by HIREN Cui-) Essential hypertension Hyperlipidemia associated with type 2 diabetes mellitus Surgical History (Updated 07/27/22 @ 05:11 by HIREN Cui-REBECA) History of appendectomy History of cholecystectomy History of colon resection History of hysterectomy Family History Father Hypertension Diabetes mellitus Mother Hypertension Social History household members: family and children Smoking Status: Former smoker Assessment & Plan Assessment & Plan narrative: 1. Abscess/cellulitis of the left buttock Patient underwent incision and drainage yesterday and was found to have an abscess cavity the size of an orange.? DANITZA drain in place.? Patient remains on meropenem.? Vancomycin was discontinued yesterday as her MRSA screen was negative.? However, today cultures from the wound revealed 4+ Gram-positive cocci.? Therefore vancomycin will be added back until culture and sensitivities are finalized.? She is receiving IV hydromorphone as needed.? Will add oral oxycodone as well.. 2. Type 2 diabetes Glipizide and metformin have been held.? Patient has been placed on fingersticks and sliding scale.? Hemoglobin A1c is 6.5% consistent with reasonably good blood glucose control.? Blood sugars have been well controlled since admission. 3. Hypertension Blood pressures are normotensive today.? She is on benazepril and an outpatient basis.? Formulary substitution with lisinopril is being given here. 4. Pancreatic head mass This is being managed by [facility] 5. Class 2 obesity BMI is 34.3.? Would benefit from weight reduction Code status Full Prophylaxis Continue Lovenox Disposition Possible discharge in the next 24-48 hours
[2022-07-29 07:38] LABS: Neutrophils Absolute Manual 10688 /uL (3000-5900); RBC Morphology Normal Morphology; Total Cells Counted 100
[2022-07-29 08:00] VITALS: BP 140/73; PULSE 87; RESP 18; TEMP 36.3; O2SAT 96
--- NOTE | 2022-07-29 09:54 | P.PN_ITS ---
Subjective Subjective Date Patient Seen: 07/29/22 Time Patient Seen: 09:55 Interval history: pain with positioning but markedly improved. Exam Vital Signs (past 8 hours): - 07/29/22 04:00 07/29/22 08:00 Temperature 97.0 F L 97.3 F L Pulse Rate 78 87 Respiratory Rate 18 18 Blood Pressure 112/55 L 140/73 Pulse Oximetry 100 96 Oxygen Flow Rate 0 Oxygen Delivery Method Room Air Oxygen Flow Rate 0 Narrative Exam Narrative: Drain has pus today. wound ok. appearance overall improved. Objective Labs 07/29/22 06:37 07/29/22 06:37 Labs: Laboratory Results - last 24 hr 07/29/22 07/29/22 06:37 06:37 WBC 16.7 H RBC 3.92 L Hgb 11.3 L Hct 33.9 L MCV 86.5 MCH 28.7 MCHC 33.2 RDW 14.6 Plt Count 446 H Neut % (Auto) Not Reportable Lymph % (Auto) Not Reportable [place] % (Auto) Not Reportable Eos % (Auto) Not Reportable Baso % (Auto) Not Reportable Lymph # (Auto) Not Reportable [place] # (Auto) Not Reportable Baso # (Auto) Not Reportable Total Counted 100 Seg Neutrophils % 59.0 Band Neutrophils % 5.0 Lymphocytes % (Manual) 23.0 L Atypical Lymphs % 7.0 H Monocytes % (Manual) 4.0 Eosinophils % (Manual) 2.0 Neutrophils # (Manual) 77209 H RBC Morphology Normal morphology Sodium 137 Potassium 3.8 Chloride 103 Carbon Dioxide 25 BUN 13 Creatinine 0.55 Estimated GFR > 60 BUN/Creatinine Ratio 23.6 H Glucose 126 H Calcium 9.1 Total Bilirubin 0.4 AST 36 ALT 40 H Alkaline Phosphatase 156 H Total Protein 7.6 Albumin 3.5 Globulin 4.1 Albumin/Globulin Ratio 0.9 L [facility] Medical History (Updated 07/27/22 @ 05:11 by LYNDSAY Cui) Essential hypertension Hyperlipidemia associated with type 2 diabetes mellitus Surgical History (Updated 07/27/22 @ 05:11 by LYNDSAY Cui) History of appendectomy History of cholecystectomy History of colon resection History of hysterectomy Family History Father Hypertension Diabetes mellitus Mother Hypertension Social History household members: family and children Smoking Status: Former smoker Assessment & Plan Post-op Postoperative Procedures: Procedures Operation Date: 07/27/22 19:00 Actual Procedure Side Surgeon p Incision and Drainage buttock abscess Left Alisha Zapata MD Postoperative status: doing well Postoperative status narrative: Needs 14 days antibiotics total. Continue drain, to be removed in clinic Postoperative plan narrative: as above Time Spent With Patient Time with patient: less than 15 minutes
[2022-07-29 12:00] VITALS: BP 138/69; PULSE 92; RESP 18; TEMP 36; O2SAT 94
[2022-07-29] MEDS: ENOXAPARIN 40 MG/0.4 ML SYRINGE SUBCUT (12:43)
[2022-07-29] MEDS: lisinopriL 10 MG TABLET PO (12:44)
[2022-07-29] MEDS: INSULIN LISPRO 100 UNIT/ML 3ML VIAL SUBCUT (13:04)
[2022-07-29] MEDS: cefUROXime 250 MG TABLET 500 MG PO (13:06)
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
== END 2022-07-29 14:40 | disposition home or self-care (01) | DRG 603 ==
LOC: ED 21:56 → AC 23:47
PROVIDERS: Physician Assistant Medical; Surgery; Admitting Provider Nurse Practitioner Family; Emergency Provider Emergency Medicine; PCP Nurse Practitioner Family; Referring Provider Emergency Medicine; Visit Provider Nurse Practitioner Family
PROC: 0J990ZZ Drainage of Buttock Subcutaneous Tissue and Fascia, Open Approach (ICD-10-PCS; principal; 2022-07-27 19:00)
DX: L02.31 Cutaneous abscess of buttock (principal); E78.5 Hyperlipidemia, unspecified; E11.9 Type 2 diabetes mellitus without complications; I10 Essential (primary) hypertension; E66.9 Obesity, unspecified; B96.20 Unspecified Escherichia coli [E. coli] as the cause of diseases classified elsewhere; Z68.34 Body mass index [BMI] 34.0-34.9, adult; Z20.822 Contact with and (suspected) exposure to COVID-19; Z87.891 Personal history of nicotine dependence; Z79.84 Long term (current) use of oral hypoglycemic drugs
CPT/HCPCS: 10060; 36415; 72193; 80053; 81003; 81015; 82962; 83036; 83605; 83735; 84145; 85007; 85025; 85610; 85651; 85730; 86140; 87040; 87070; 87075; 87077; 87086; 87186; 87205; 87635; 87797; 96365; 96366; 96375; 99232; 99284; 99285; C9803; J0696; J1100; J1170; J1650; J1815; J2185; J2270; J2405; J2704; J3010; Q9967

== ENCOUNTER → 2022-08-07 12:29 | Outpatient (CLI) | payer BC, SELFPAY ==
[2022-07-27 16:44] VITALS: BMI 34.2
== END ==
PROVIDERS: PCP Nurse Practitioner Family; Visit Provider Surgery
DX: L02.31 Cutaneous abscess of buttock (principal)
CPT/HCPCS: 46050; 87070; 87077; 87186; 87205